=== PATIENT | female | born 1950 | race Caucasian/White ===

== ENCOUNTER 2016-05-25 10:02 | Emergency (ER) | payer MEDICARE ==
[~2016-05-25] VITALS: Ht 152.4 cm; Wt 81.6 kg
[2016-05-25 10:02] VITALS: BP 131/92; PULSE 68; RESP 19; TEMP 97.1; O2SAT 91
[2016-05-25 11:15] LABS: BASOPHILS % (AUTO) 0.3 % (0.0-2.0); EOSINOPHILS # (AUTO) 0.2 K/uL (0.0-0.4); HEMOGLOBIN 13.6 g/dL (12.0-16.0); LYMPHOCYTES # (AUTO) 1.2 K/uL (1.0-5.5); LYMPHOCYTES % (AUTO) 17.4 % (20.5-51.5); MEAN CORPUSCULAR HEMOGLOBIN 29 pg (27-31); MEAN CORPUSCULAR HGB CONC 33 % (32-36); MEAN CORPUSCULAR VOLUME 88 fL (79.0-98.0); MONOCYTES # (AUTO) 0.5 K/uL (0.0-1.0); MONOCYTES % (AUTO) 7.3 % (1.7-9.3); NEUTROPHILS # (AUTO) 4.8 K/uL (1.8-7.7); PLATELET COUNT (AUTO) 216 K/uL (130-430); RED BLOOD CELL COUNT(AUTO) 4.69 MIL/uL (4.2-6.2); RED CELL DISTRIBUTION WIDTH 12.6 % (9.0-15.0); WHITE BLOOD COUNT (AUTO) 6.7 K/uL (4.8-10.8)
[2016-05-25 11:41] LABS: ANION GAP 6 (5-15); CALCIUM 9.3 mg/dL (8.4-11.0); CHLORIDE 100 mmol/L (98-107); CREATININE 0.58 mg/dL (0.55-1.30); GLUCOSE 119 mg/dL (70-99); POTASSIUM 4.2 mmol/L (3.5-5.1); SODIUM SERUM 142 mmol/L (136-145); UREA NITROGEN, BLOOD 12 mg/dL (8-21)
[2016-05-25 11:44] LABS: GFR AFRICAN AMERICAN 135 mL/min (>90)
[2016-05-25 11:50] LABS: ALANINE AMINOTRANSFERASE 23 U/L (12-78); ALBUMIN 3.1 g/dL (3.4-4.8); ASPARTATE AMINOTRANSFERASE 16 U/L (10-37); PROTHROMBIN TIME 10.9 SECS (9.5-12.5); TOTAL BILIRUBIN 0.3 mg/dL (0.0-1.0); TOTAL PROTEIN, SERUM 7.3 g/dL (6.4-8.3)
[2016-05-25] MEDS ORDERED: cefTRIAXone 1 GM VIAL IM ONE (12:00)
[2016-05-25] MEDS ORDERED: LIDOCAINE 1%, 20 ML MDV 20 ML ONE (12:17)
[2016-05-25 12:54] VITALS: BP 131/92; PULSE 68; RESP 19; TEMP 97.1; O2SAT 91
== END 2016-05-25 12:54 | disposition home or self-care (01) ==
LOC: SED 10:02
DX: J18.9 Pneumonia, unspecified organism (principal)
CPT/HCPCS: 36415; 71020; 80053; 83880; 84484; 85025; 85610; 85730; 96372; 99285; J0696; J2001